=== PATIENT | female | born 1970 | race Two or more races ===

== ENCOUNTER 2016-11-08 22:51 | Emergency (ER) | payer MEDICAID ==
[~2016-11-08] VITALS: Ht 154.9 cm; Wt 59.0 kg
[2016-11-08 23:00] VITALS: BP 106/74
[2016-11-08 23:46] LABS: Basophils # (auto) 0 uL; Basophils % (auto) 0.3 % (0.0-2.0); Eosinophils # (auto) 0.1 uL; Eosinophils % (auto) 1.1 % (0.0-7.0); Hematocrit 33.4 % (36.0-46.0); Hemoglobin 11.4 g/dL (12.2-16.2); Lymphocytes # (auto) 1.6 uL; Lymphocytes % (auto) 28.1 % (10.0-50.0); Mean Corpuscular Hemoglobin 28.3 pg (28.0-32.0); Mean Corpuscular Hgb Conc. 34.3 g/dL (32.0-36.0); Mean Corpuscular Volume 82.5 fL (80.0-100.0); Mean Platelet Volume 8.7 fL (7.4-10.4); Monocytes # (auto) 0.3 uL; Monocytes % (auto) 5.9 % (0.0-12.0); Neutrophils # (auto) 3.7 uL; Neutrophils % (auto) 64.6 % (37.0-80.0); Platelet Count (auto) 178 10^3/uL (140-450); Red Cell Distribution Width 13.9 % (11.6-16.0); White Blood Cell 5.7 10^3/uL (4.4-10.8)
[2016-11-09 00:08] LABS: Albumin 3.2 g/dL (3.4-5.0); BUN/Creatinine Ratio 20.4; Bilirubin, Total 0.3 mg/dL (0.2-1.0); Calcium 8.4 mg/dL (8.5-10.1); Potassium 3.6 mmol/L (3.5-5.1); Total Protein 8.2 g/dL (6.4-8.2)
[2016-11-09] MEDS ORDERED: cefTRIAXone SOD 1,000 MG VL IM ONE (01:00)
[2016-11-09] MEDS ORDERED: LIDOCAINE 1% HCL (LOCAL ANESTH.) INJ 20ML MDV IJ ONE (01:00)
== END 2016-11-09 01:34 | disposition home or self-care (01) ==
LOC: ER 22:51
DX: L02.413 Cutaneous abscess of right upper limb (principal); L03.113 Cellulitis of right upper limb; F15.90 Other stimulant use, unspecified, uncomplicated; F17.210 Nicotine dependence, cigarettes, uncomplicated
CPT/HCPCS: 36415; 80053; 85025; 87040; 96372; 96374; 99284; J0696; J2001

== ENCOUNTER 2017-01-07 07:35 | Inpatient (IN) | payer SELFPAY ==
[~2017-01-07] VITALS: Ht 154.9 cm; Wt 65.9 kg
[2017-01-07] MEDS ORDERED: SODIUM CHLORIDE 0.9% 1,000 ML IV ONE (07:47)
[2017-01-07] MEDS ORDERED: CLINDAMYCIN 600MG IV 50 ML IV ONE (08:00)
[2017-01-07] MEDS ORDERED: KETOROLAC TROMETH 30 MG/ML 1ML VIAL IV ONE (09:00)
[2017-01-07 09:07] LABS: Basophils # (auto) 0 uL; Basophils % (auto) 0.3 % (0.0-2.0); CONDITION Y; Eosinophils # (auto) 0 uL; Eosinophils % (auto) 0.5 % (0.0-7.0); Hemoglobin 11.4 g/dL (12.2-16.2); Lymphocytes % (auto) 13.9 % (10.0-50.0); Mean Corpuscular Hgb Conc. 33.7 g/dL (32.0-36.0); Mean Corpuscular Volume 83.2 fL (80.0-100.0); Monocytes # (auto) 0.3 uL; Monocytes % (auto) 4.7 % (0.0-12.0); Neutrophils # (auto) 5.9 uL; Neutrophils % (auto) 80.6 % (37.0-80.0); Platelet Count (auto) 169 10^3/uL (140-450); Red Cell Distribution Width 15.4 % (11.6-16.0); White Blood Cell 7.3 10^3/uL (4.4-10.8)
[2017-01-07 09:26] LABS: Albumin 2.9 g/dL (3.4-5.0); BUN/Creatinine Ratio 13.3; Bilirubin, Total 0.3 mg/dL (0.2-1.0); Potassium 3.4 mmol/L (3.5-5.1); Total Protein 7.8 g/dL (6.4-8.2)
[2017-01-07] MEDS ORDERED: PROMETHAZINE HCL 25 MG/ML 1ML IV PRN (09:45)
[2017-01-07] MEDS ORDERED: LORazepam 0.5 MG TAB PO PRN (09:45)
[2017-01-07] MEDS ORDERED: cefTRIAXone 1GM/50ML D5W 50 ML IV ONE (09:45)
[2017-01-07] MEDS ORDERED: LACTULOSE 20Gm/30ML SOLN PO PRN (09:45)
[2017-01-07] MEDS ORDERED: MORPHINE SULF INJ 2 MG/ML SYRINGE 1ML IV PRN (09:45)
[2017-01-07] MEDS ORDERED: NITROGLYCERIN 0.4 MG SL TAB SL PRN (09:45)
[2017-01-07] MEDS ORDERED: ACETAMINOPHEN 500 MG TAB PO PRN (09:45)
[2017-01-07] MEDS: SODIUM CHLORIDE 0.9% 1,000 ML IV SCH ×2 (09:59→19:35)
[2017-01-07] MEDS ORDERED: POTASSIUM CHL 20 Meq TABLET PO ONE (11:30)
[2017-01-07] MEDS: HYDROcodone-ACET 5/325MG TAB PO PRN (16:09)
[2017-01-07] MEDS: CLINDAMYCIN 600MG IV 50 ML IV SCH ×2 (18:19→21:19)
[2017-01-07] MEDS: MORPHINE SULFATE 4 MG/ML SYRG IV PRN ×2 (18:20→22:45)
[2017-01-07] MEDS ORDERED: METH10T PO (19:02)
[2017-01-07 19:25] LABS: Urine Bilirubin Negative (Negative); Urine Blood TRACE /uL (Negative); Urine Color Yellow (Yellow); Urine Glucose Normal (Normal); Urine Ketone Negative (Negative); Urine Mucus FEW (None Seen); Urine Nitrite Negative (Negative); Urine RBC 1 /hpf (0 - 4); Urine Squamous Epithelial Cell FEW /hpf (<5); Urine Urobilinogen Normal (Negative); Urine pH 5.5 (5.0-8.0)
[2017-01-07 21:40] VITALS: BP 129/88
[2017-01-08] MEDS: TEMAZEPAM 15 MG CAP PO PRN (02:05)
[2017-01-08] MEDS: MORPHINE SULFATE 4 MG/ML SYRG IV PRN ×3 (02:40→13:01)
[2017-01-08 04:51] VITALS: BP 121/79
[2017-01-08] MEDS: SODIUM CHLORIDE 0.9% 1,000 ML IV SCH ×2 (05:35→15:35)
[2017-01-08] MEDS: CLINDAMYCIN 600MG IV 50 ML IV SCH ×3 (05:53→22:41)
[2017-01-08 06:21] LABS: Albumin 2.5 g/dL (3.4-5.0); Calcium 7.6 mg/dL (8.5-10.1); Potassium 3.7 mmol/L (3.5-5.1)
[2017-01-08 06:25] LABS: BUN/Creatinine Ratio 11.8
[2017-01-08 06:29] LABS: Bilirubin, Total 0.3 mg/dL (0.2-1.0); Total Protein 6.5 g/dL (6.4-8.2)
[2017-01-08 07:30] VITALS: BP 124/79
[2017-01-08 09:00] VITALS: BP 124/79
[2017-01-08] MEDS: cefTRIAXone 1GM/50ML D5W 50 ML IV SCH (11:23)
[2017-01-08 13:00] VITALS: BP 115/60
[2017-01-08] MEDS: METHADONE HCL 10 MG TAB PO SCH (14:22)
[2017-01-08 17:23] VITALS: BP 108/64
[2017-01-08] MEDS: HYDROmorphone HCL 2 MG/ML VL IV PRN ×2 (18:11→22:41)
[2017-01-08 22:00] VITALS: BP 135/78
[2017-01-09 05:00] VITALS: BP 104/66
[2017-01-09] MEDS: SODIUM CHLORIDE 0.9% 1,000 ML IV SCH ×3 (05:50→21:35)
[2017-01-09 06:15] LABS: BUN/Creatinine Ratio 10.8; Calcium 7.6 mg/dL (8.5-10.1); Magnesium 1.9 mg/dL (1.6-2.6); Phosphorus 3.2 mg/dL (2.5-4.90)
[2017-01-09] MEDS: HYDROmorphone HCL 2 MG/ML VL IV PRN ×4 (06:17→20:24)
[2017-01-09] MEDS: CLINDAMYCIN 600MG IV 50 ML IV SCH ×2 (06:18→15:27)
[2017-01-09 06:53] LABS: Basophils # (auto) 0 uL; Basophils % (auto) 0.2 % (0.0-2.0); CONDITION Y; Eosinophils # (auto) 0.1 uL; Eosinophils % (auto) 1.4 % (0.0-7.0); Hematocrit 26.6 % (36.0-46.0); Hemoglobin 8.9 g/dL (12.2-16.2); Lymphocytes # (auto) 1.3 uL; Lymphocytes % (auto) 24.9 % (10.0-50.0); Mean Corpuscular Hemoglobin 27.8 pg (28.0-32.0); Mean Corpuscular Hgb Conc. 33.4 g/dL (32.0-36.0); Mean Platelet Volume 10.4 fL (7.4-10.4); Monocytes # (auto) 0.4 uL; Monocytes % (auto) 7.5 % (0.0-12.0); Neutrophils # (auto) 3.4 uL; Platelet Count (auto) 137 10^3/uL (140-450); Red Cell Distribution Width 15.6 % (11.6-16.0); White Blood Cell 5.2 10^3/uL (4.4-10.8)
[2017-01-09 09:00] VITALS: BP 105/63
[2017-01-09] MEDS: METHADONE HCL 10 MG TAB PO SCH (09:47)
[2017-01-09] MEDS: cefTRIAXone 1GM/50ML D5W 50 ML IV SCH (09:47)
[2017-01-09 13:00] VITALS: BP 114/71
[2017-01-09] MEDS ORDERED: VANCOMYCIN 1,250 MG in D5W 5% 250 ML IV ONE (16:45)
[2017-01-09] MEDS ORDERED: VANCOMYCIN PER PHARMACY 0 MG IV SCH (16:45)
[2017-01-09 17:00] VITALS: BP 151/83
[2017-01-09] MEDS: NICOTINE 21MG/24 HR TOPICAL PATCH TD SCH (17:43)
[2017-01-09] MEDS ORDERED: POTASSIUM CHL 20 Meq TABLET PO ONE (21:00)
[2017-01-09 22:17] VITALS: BP 127/79
[2017-01-10] MEDS: SODIUM CHLORIDE 0.9% 1,000 ML IV SCH (02:53)
[2017-01-10] MEDS: HYDROmorphone HCL 2 MG/ML VL IV PRN ×3 (02:58→20:32)
[2017-01-10 05:05] VITALS: BP 118/72
[2017-01-10 07:10] LABS: Basophils # (auto) 0 uL; Basophils % (auto) 0.3 % (0.0-2.0); CONDITION Y; Eosinophils # (auto) 0.1 uL; Hematocrit 27.8 % (36.0-46.0); Hemoglobin 9.5 g/dL (12.2-16.2); Lymphocytes # (auto) 1.2 uL; Lymphocytes % (auto) 23.3 % (10.0-50.0); Mean Corpuscular Hemoglobin 27.9 pg (28.0-32.0); Mean Corpuscular Volume 82.2 fL (80.0-100.0); Mean Platelet Volume 9.2 fL (7.4-10.4); Monocytes # (auto) 0.4 uL; Monocytes % (auto) 7.9 % (0.0-12.0); Neutrophils # (auto) 3.5 uL; Neutrophils % (auto) 67.5 % (37.0-80.0); Platelet Count (auto) 171 10^3/uL (140-450); White Blood Cell 5.2 10^3/uL (4.4-10.8)
[2017-01-10 07:34] LABS: BUN/Creatinine Ratio 10.5; Calcium 7.9 mg/dL (8.5-10.1); Magnesium 1.9 mg/dL (1.6-2.6); Phosphorus 3.2 mg/dL (2.5-4.90); Potassium 3.9 mmol/L (3.5-5.1)
[2017-01-10 09:00] VITALS: BP 118/68
[2017-01-10] MEDS: NICOTINE 21MG/24 HR TOPICAL PATCH TD SCH (10:00)
[2017-01-10] MEDS: cefTRIAXone 1GM/50ML D5W 50 ML IV SCH (10:17)
[2017-01-10] MEDS: VANCOMYCIN 1GM/250ML D5W 250 ML IV SCH ×2 (10:17→21:35)
[2017-01-10] MEDS: METHADONE HCL 10 MG TAB PO SCH (10:18)
[2017-01-10 13:00] VITALS: BP 120/65
[2017-01-10 17:00] VITALS: BP 127/72
[2017-01-10 21:39] VITALS: BP 119/70
[2017-01-11] MEDS: HYDROmorphone HCL 2 MG/ML VL IV PRN ×5 (02:38→22:00)
[2017-01-11 05:14] VITALS: BP 107/67
[2017-01-11 08:30] VITALS: BP 107/64
[2017-01-11] MEDS: cefTRIAXone 1GM/50ML D5W 50 ML IV SCH (08:32)
[2017-01-11] MEDS: VANCOMYCIN 1GM/250ML D5W 250 ML IV SCH ×2 (09:52→20:50)
[2017-01-11] MEDS: METHADONE HCL 10 MG TAB PO SCH (09:53)
[2017-01-11] MEDS: NICOTINE 21MG/24 HR TOPICAL PATCH TD SCH (09:53)
[2017-01-11 12:30] VITALS: BP 112/65
[2017-01-11] MEDS: HYDROcodone-ACET 5/325MG TAB PO PRN (16:03)
[2017-01-11 17:00] VITALS: BP 116/80
[2017-01-11] MEDS ORDERED: NICOTINE 21MG/24 HR TOPICAL PATCH TD ONE (17:00)
[2017-01-11 21:45] VITALS: BP 146/75
[2017-01-12] MEDS: HYDROmorphone HCL 2 MG/ML VL IV PRN ×4 (02:33→23:20)
[2017-01-12 05:15] VITALS: BP 112/60
[2017-01-12] MEDS ORDERED: ceFAZolin 1GM/50ML D5W 50 ML IV ONE (08:35)
[2017-01-12] MEDS ORDERED: NEOMYCIN-BACITRACIN-POLYM 15GM TOP OINT TOP ONE (08:36)
[2017-01-12] MEDS ORDERED: BUPIVACAINE 0.75% INJ 10ML MPV SDV IJ ONE (08:36)
[2017-01-12] MEDS ORDERED: ceFAZolin 1GM VL ONE (08:36)
[2017-01-12 08:52] LABS: INR 0.91 (0.9-1.15); Partial Thromboplastin Time 26.9 sec (22.64-33.71); Prothrombin Time 9.9 sec (9.37-12.3)
[2017-01-12 09:00] VITALS: BP 114/76
[2017-01-12] MEDS: cefTRIAXone 1GM/50ML D5W 50 ML IV SCH (09:00)
[2017-01-12] MEDS ORDERED: fentaNYL CITRATE 100 MCG/2 ML VL ONE (09:37)
[2017-01-12] MEDS ORDERED: MEPERIDINE HCL (50 MG/ML) 1 ML VIAL ONE (09:38)
[2017-01-12] MEDS ORDERED: MIDAZOLAM HCL 1MG/1ML-2 ML VIAL ONE (09:38)
[2017-01-12] MEDS: VANCOMYCIN 1GM/250ML D5W 250 ML IV SCH (10:00)
[2017-01-12] MEDS: METHADONE HCL 10 MG TAB PO SCH (10:00)
[2017-01-12] MEDS: NICOTINE 21MG/24 HR TOPICAL PATCH TD SCH (10:00)
[2017-01-12] MEDS ORDERED: DEXAMETHASONE SOD PHOS 10MG/1ML VIAL INJ ONE (10:10)
[2017-01-12] MEDS ORDERED: PROPOFOL 10 MG/ML 20 ML IV ONE (10:10)
[2017-01-12 12:39] VITALS: BP 119/73
[2017-01-12] MEDS: CLINDAMYCIN 600MG IV 50 ML IV SCH ×2 (14:24→21:56)
[2017-01-12 16:11] VITALS: BP 120/68
[2017-01-12] MEDS ORDERED: METHADONE HCL 10 MG TAB PO ONE (17:00)
[2017-01-12 22:00] VITALS: BP 145/62
[2017-01-13] MEDS: TEMAZEPAM 15 MG CAP PO PRN (00:22)
[2017-01-13] MEDS: HYDROcodone-ACET 5/325MG TAB PO PRN (00:22)
[2017-01-13] MEDS: CLINDAMYCIN 600MG IV 50 ML IV SCH (05:10)
[2017-01-13 05:30] VITALS: BP 105/51
[2017-01-13] MEDS: HYDROmorphone HCL 2 MG/ML VL IV PRN ×2 (06:55→11:32)
[2017-01-13 09:00] VITALS: BP 118/70
[2017-01-13] MEDS: cefTRIAXone 1GM/50ML D5W 50 ML IV SCH (09:25)
[2017-01-13] MEDS ORDERED: CLIN1CAP4 PO (09:58)
[2017-01-13] MEDS: NICOTINE 21MG/24 HR TOPICAL PATCH TD SCH (10:10)
[2017-01-13] MEDS: METHADONE HCL 10 MG TAB PO SCH (10:11)
[2017-01-13 13:00] VITALS: BP 126/69
[2017-01-13 13:02] VITALS: BP 126/69
== END 2017-01-13 17:40 | disposition home or self-care (01) | DRG 571 ==
LOC: ER 07:35 → TELE 07:36 → TELE-E-ADS 12:42 → TELE-CENTR 16:57 → CENTRAL 01-10 03:11
PROVIDERS: ADMIT Internal Medicine; ATTEND Internal Medicine
PROC: 0JBR0ZZ Excision of Left Foot Subcutaneous Tissue and Fascia, Open Approach (ICD-10-PCS; principal; 2017-01-12 09:36)
DX: L03.116 Cellulitis of left lower limb (principal); F11.20 Opioid dependence, uncomplicated; L02.612 Cutaneous abscess of left foot; E44.0 Moderate protein-calorie malnutrition; B19.20 Unspecified viral hepatitis C without hepatic coma; F41.9 Anxiety disorder, unspecified; F32.9 Major depressive disorder, single episode, unspecified; F17.210 Nicotine dependence, cigarettes, uncomplicated; E87.6 Hypokalemia; D64.9 Anemia, unspecified; Z68.27 Body mass index [BMI] 27.0-27.9, adult; Z98.51 Tubal ligation status
CPT/HCPCS: 36415; 73630; 73700; 80048; 80053; 80202; 80307; 81001; 82565; 83605; 83735; 84100; 84702; 85025; 85610; 85652; 85730; 87040; 87070; 87075; 87081; 87205; 94761; 96361; 96365; 96366; 96367; 96375; J0690; J0696; J1100; J1885; J2250; J2704; J3490; J7060

== ENCOUNTER 2017-02-08 17:15 | Emergency (ER) | payer SELFPAY ==
[~2017-02-08] VITALS: Ht 154.9 cm; Wt 59.0 kg
[~2017-02-08 17:15] MED LIST: CLIN1CAP4 PO; METH10T PO
[2017-02-08 17:39] VITALS: BP 120/83
== END 2017-02-08 21:00 | disposition left against medical advice (07) ==
LOC: ER 17:25
DX: R22.0 Localized swelling, mass and lump, head (principal); Z53.21 Procedure and treatment not carried out due to patient leaving prior to being seen by health care provider

== ENCOUNTER 2017-02-23 20:46 | Emergency (ER) | payer MEDICAID ==
[~2017-02-23] VITALS: Ht 154.9 cm; Wt 59.0 kg
[2017-02-23 21:12] VITALS: BP 110/72
[2017-02-23 22:23] LABS: Basophils # (auto) 0 uL; Basophils % (auto) 0.1 % (0.0-2.0); Eosinophils # (auto) 0.1 uL; Eosinophils % (auto) 0.8 % (0.0-7.0); Hematocrit 31.7 % (36.0-46.0); Hemoglobin 10.8 g/dL (12.2-16.2); Lymphocytes # (auto) 0.9 uL; Lymphocytes % (auto) 9.3 % (10.0-50.0); Mean Corpuscular Hemoglobin 27.6 pg (28.0-32.0); Mean Corpuscular Volume 81.3 fL (80.0-100.0); Mean Platelet Volume 8.8 fL (6.9-10.8); Monocytes # (auto) 0.5 uL; Monocytes % (auto) 4.8 % (0.0-12.0); Neutrophils # (auto) 8.3 uL; Platelet Count (auto) 204 10^3/uL (140-450); Red Cell Distribution Width 14.7 % (11.8-14.3); White Blood Cell 9.7 10^3/uL (4.4-10.8)
[2017-02-23 22:28] LABS: Urine Bilirubin Negative (Negative); Urine Blood 1+ /uL (Negative); Urine Color Yellow (Yellow); Urine Glucose Normal (Normal); Urine Ketone Negative (Negative); Urine Mucus MODERATE (None Seen); Urine Nitrite Negative (Negative); Urine RBC 5 /hpf (0 - 4); Urine Squamous Epithelial Cell MOD /hpf (<5); Urine Urobilinogen Normal (Negative); Urine WBC Clumps PRESENT /hpf (None Seen)
[2017-02-23 22:37] LABS: Albumin 2.8 g/dL (3.4-5.0); BUN/Creatinine Ratio 12.7; Bilirubin, Total 0.3 mg/dL (0.2-1.0); Calcium 8.6 mg/dL (8.5-10.1); Total Protein 7.9 g/dL (6.4-8.2)
== END 2017-02-24 01:47 | disposition left against medical advice (07) ==
LOC: ER 20:56
DX: L02.211 Cutaneous abscess of abdominal wall (principal); Z53.21 Procedure and treatment not carried out due to patient leaving prior to being seen by health care provider
CPT/HCPCS: 36415; 80053; 80307; 81001; 83605; 84702; 85025; 87040

== ENCOUNTER 2017-03-05 11:18 | Emergency (ER) | payer MEDICAID ==
[~2017-03-05] VITALS: Ht 154.9 cm; Wt 59.0 kg
[2017-03-05 11:36] VITALS: BP 149/92
[2017-03-05] MEDS ORDERED: LIDOCAINE 1% HCL (LOCAL ANESTH.) INJ 20ML MDV IN ONE (14:00)
[2017-03-05] MEDS ORDERED: cefTRIAXone SOD 1,000 MG VL IM ONE (14:15)
[2017-03-05] MEDS ORDERED: KETOROLAC TROMETH 60MG/2ML VIAL IM ONE (14:15)
== END 2017-03-05 14:48 | disposition home or self-care (01) ==
LOC: ER 11:18
DX: L02.211 Cutaneous abscess of abdominal wall (principal); Z79.899 Other long term (current) drug therapy; Z98.51 Tubal ligation status; Z59.0 Homelessness; F19.90 Other psychoactive substance use, unspecified, uncomplicated
CPT/HCPCS: 10060; 96372; 99284; J0696; J1885; J2001

== ENCOUNTER 2017-07-09 17:20 | Emergency (ER) | payer MEDICAID, OTHER ==
[~2017-07-09] VITALS: Ht 154.9 cm; Wt 57.2 kg
[2017-07-09 17:41] VITALS: BP 134/86
[2017-07-09] MEDS ORDERED: cefTRIAXone SOD 1,000 MG VL IM ONE (17:45)
== END 2017-07-09 18:22 | disposition home or self-care (01) ==
LOC: ER 17:25
DX: L03.311 Cellulitis of abdominal wall (principal); F19.90 Other psychoactive substance use, unspecified, uncomplicated; F17.210 Nicotine dependence, cigarettes, uncomplicated; Z59.0 Homelessness
CPT/HCPCS: 96372; 99283; J0696

== ENCOUNTER 2017-08-07 14:31 | Inpatient (IN) | payer OTHER ==
[~2017-08-07] VITALS: Ht 154.9 cm; Wt 57.1 kg
[2017-08-07 15:38] LABS: Basophils # (auto) 0 uL; Basophils % (auto) 0.2 % (0.0-2.0); Eosinophils # (auto) 0.2 uL; Eosinophils % (auto) 2.2 % (0.0-7.0); Hematocrit 34.2 % (36.0-46.0); Hemoglobin 11.2 g/dL (12.2-16.2); Lymphocytes # (auto) 0.9 uL; Lymphocytes % (auto) 12.6 % (10.0-50.0); Mean Corpuscular Hemoglobin 25.6 pg (28.0-32.0); Mean Corpuscular Hgb Conc. 32.8 g/dL (32.0-36.0); Monocytes # (auto) 0.4 uL; Monocytes % (auto) 5.9 % (0.0-12.0); Neutrophils # (auto) 5.8 uL; Neutrophils % (auto) 79.1 % (37.0-80.0); Platelet Count (auto) 256 10^3/uL (140-450); Red Blood Cells 4.38 10^6/uL (4.0-5.20); Red Cell Distribution Width 15.8 % (11.8-14.3); White Blood Cell 7.3 10^3/uL (4.4-10.8)
[2017-08-07 15:55] LABS: Albumin 2.8 g/dL (3.4-5.0); BUN/Creatinine Ratio 29.8; Calcium 8.4 mg/dL (8.5-10.1); Potassium 3.2 mmol/L (3.5-5.1)
[2017-08-07 15:57] LABS: Bilirubin, Total 0.2 mg/dL (0.2-1.0)
[2017-08-07] MEDS ORDERED: SODIUM CHLORIDE 0.9% 1,000 ML IV ONE (21:45)
[2017-08-07] MEDS ORDERED: VANCOMYCIN 1GM/250ML 250 ML IV ONE (22:30)
[2017-08-07] MEDS ORDERED: HYDROcodone-ACET 10/325MG TAB PO ONE (22:30)
[2017-08-07] MEDS ORDERED: cefTRIAXone 1GM/10ml IVPUSH 10 ML IV ONE (22:30)
[2017-08-08] MEDS ORDERED: HYDROcodone-ACET 5/325MG TAB PO PRN (03:00)
[2017-08-08] MEDS ORDERED: ONDANSETRON HCL 4 MG/2 ML VIAL IV PRN (03:00)
[2017-08-08] MEDS ORDERED: ACETAMINOPHEN 500 MG TAB PO PRN (03:00)
[2017-08-08] MEDS ORDERED: VANCOMYCIN PER PHARMACY 0 MG IV SCH (03:00)
[2017-08-08 05:02] LABS: Urine Bacteria MOD /hpf (None Seen); Urine Blood 2+ /uL (Negative); Urine Mucus FEW (None Seen); Urine Specific Gravity 1.006 (1.001-1.035); Urine WBC 5 /hpf (0 - 5)
[2017-08-08 05:14] LABS: Alcohol, Urine < 3.0 mg/dL (0-5); Amphetamine Screen, Urine POSITIVE (NEGATIVE); Barbiturate Scree,Urine NEGATIVE (NEGATIVE); Benzodiazephine Screen, Urine NEGATIVE (NEGATIVE); Cannabinoid Screen, Urine NEGATIVE (NEGATIVE); Cocaine Screen, Urine NEGATIVE (NEGATIVE); Opiate Scree,Urine POSITIVE (NEGATIVE); Phencyclidine Screen, Urine NEGATIVE (NEGATIVE)
[2017-08-08 08:01] LABS: Potassium 3.5 mmol/L (3.5-5.1)
[2017-08-08 08:10] LABS: Albumin 2.2 g/dL (3.4-5.0); BUN/Creatinine Ratio 20.5; Calcium 7.8 mg/dL (8.5-10.1)
[2017-08-08 08:19] LABS: Bilirubin, Total 0.2 mg/dL (0.2-1.0); Total Protein 6.6 g/dL (6.4-8.2)
[2017-08-08] MEDS: VANCOMYCIN 750 MG in D5W 5% 250 ML IV SCH ×2 (09:28→20:52)
[2017-08-08 10:07] LABS: Basophils # (auto) 0 uL; Eosinophils # (auto) 0.1 uL; Hemoglobin 10.2 g/dL (12.2-16.2); Monocytes # (auto) 0.3 uL
[2017-08-08 10:09] LABS: Basophils % (auto) 0.3 % (0.0-2.0); Eosinophils % (auto) 1.7 % (0.0-7.0); Hematocrit 30.3 % (36.0-46.0); Lymphocytes # (auto) 0.7 uL; Lymphocytes % (auto) 11.4 % (10.0-50.0); Mean Corpuscular Hemoglobin 26.2 pg (28.0-32.0); Mean Corpuscular Hgb Conc. 33.6 g/dL (32.0-36.0); Mean Corpuscular Volume 77.9 fL (80.0-100.0); Monocytes % (auto) 4.7 % (0.0-12.0); Neutrophils % (auto) 81.9 % (37.0-80.0); Platelet Count (auto) 245 10^3/uL (140-450); Red Blood Cells 3.88 10^6/uL (4.0-5.20); Red Cell Distribution Width 15.8 % (11.8-14.3); White Blood Cell 6.1 10^3/uL (4.4-10.8)
[2017-08-08 10:26] LABS: BUN/Creatinine Ratio 16.7; Calcium 8.5 mg/dL (8.5-10.1); Potassium 3.6 mmol/L (3.5-5.1)
[2017-08-08] MEDS: MORPHINE SULFATE 4 MG/ML SYR/VIAL IV PRN ×3 (11:09→20:52)
[2017-08-08 14:54] VITALS: BP 121/71
[2017-08-08] MEDS ORDERED: cefTRIAXone 1GM/10ml IVPUSH 10 ML IV ONE (15:15)
[2017-08-08] MEDS ORDERED: INFLUENZA QUAD 2017-2018 0.5 ML SYRG IM ONE (15:45)
[2017-08-08 16:58] VITALS: BP 121/70
[2017-08-08 20:00] VITALS: BP 127/80
[2017-08-08 21:24] VITALS: BP 127/80
[2017-08-09] MEDS: MORPHINE SULFATE 4 MG/ML SYR/VIAL IV PRN ×4 (02:57→19:50)
[2017-08-09 05:43] VITALS: BP 98/51
[2017-08-09 08:31] LABS: Basophils # (auto) 0 uL; Eosinophils # (auto) 0.2 uL; Hemoglobin 10.4 g/dL (12.2-16.2); Monocytes # (auto) 0.5 uL; Neutrophils # (auto) 3.2 uL; Nucleated Red Blood Cells % 0.1 %; Red Blood Cells 4.05 10^6/uL (4.0-5.20)
[2017-08-09 08:33] LABS: Basophils % (auto) 0.5 % (0.0-2.0); Eosinophils % (auto) 3.3 % (0.0-7.0); Hematocrit 31.4 % (36.0-46.0); Mean Corpuscular Hemoglobin 25.7 pg (28.0-32.0); Mean Corpuscular Hgb Conc. 33.2 g/dL (32.0-36.0); Mean Corpuscular Volume 77.5 fL (80.0-100.0); Monocytes % (auto) 9.9 % (0.0-12.0); Neutrophils % (auto) 66.3 % (37.0-80.0); Platelet Count (auto) 271 10^3/uL (140-450); Red Cell Distribution Width 16.1 % (11.8-14.3); White Blood Cell 4.9 10^3/uL (4.4-10.8)
[2017-08-09] MEDS: cefTRIAXone 1GM/10ml IVPUSH 10 ML IV SCH (08:45)
[2017-08-09] MEDS: VANCOMYCIN 750 MG in D5W 5% 250 ML IV SCH ×2 (08:45→20:31)
[2017-08-09 08:49] LABS: Albumin 2.3 g/dL (3.4-5.0); BUN/Creatinine Ratio 20.9; Bilirubin, Total 0.2 mg/dL (0.2-1.0); Calcium 8.3 mg/dL (8.5-10.1); Potassium 3.9 mmol/L (3.5-5.1); Total Protein 7.1 g/dL (6.4-8.2)
[2017-08-09 09:16] VITALS: BP 117/67
[2017-08-09 13:24] VITALS: BP 117/71
[2017-08-09 20:00] VITALS: BP 133/70
[2017-08-09] MEDS ORDERED: VANCOMYCIN 750 MG in D5W 5% 250 ML IV SCH (21:00)
[2017-08-09 22:27] VITALS: BP 125/72
[2017-08-10] MEDS: MORPHINE SULFATE 4 MG/ML SYR/VIAL IV PRN ×5 (00:30→17:57)
[2017-08-10] MEDS: VANCOMYCIN 750 MG in D5W 5% 250 ML IV SCH ×2 (05:09→13:43)
[2017-08-10 05:24] VITALS: BP 124/68
[2017-08-10 08:34] VITALS: BP 135/84
[2017-08-10] MEDS: cefTRIAXone 1GM/10ml IVPUSH 10 ML IV SCH (09:26)
[2017-08-10 12:23] VITALS: BP 131/82
[2017-08-10 16:38] VITALS: BP 131/79
== END 2017-08-10 19:47 | disposition left against medical advice (07) | DRG 383 ==
LOC: ER 14:31 → OVERFLOW 14:32 → EAST 08-08 14:08
PROVIDERS: ADMIT Nurse Practitioner Family; ATTEND Internal Medicine
DX: L03.115 Cellulitis of right lower limb (principal); E43 Unspecified severe protein-calorie malnutrition; L02.415 Cutaneous abscess of right lower limb; F11.10 Opioid abuse, uncomplicated; B19.20 Unspecified viral hepatitis C without hepatic coma; F41.9 Anxiety disorder, unspecified; Z53.21 Procedure and treatment not carried out due to patient leaving prior to being seen by health care provider; F17.210 Nicotine dependence, cigarettes, uncomplicated; Z59.0 Homelessness; Z23 Encounter for immunization
CPT/HCPCS: 36415; 73700; 80048; 80053; 80202; 80307; 81001; 83605; 85025; 87040; 87070; 87077; 87086; 87186; 96361; 96365; 96366; 96375; J2405; J7060

== ENCOUNTER 2017-11-02 09:16 | Inpatient (IN) | payer MEDICAID, OTHER ==
[~2017-11-02] VITALS: Ht 154.9 cm; Wt 57.2 kg
[~2017-11-02 09:16] MED LIST changes: -CLIN1CAP4 PO
[2017-11-02] MEDS ORDERED: SODIUM CHLORIDE 0.9% 2,000 ML IV ONE (09:52)
[2017-11-02] MEDS ORDERED: cefTRIAXone 1GM/10ml IVPUSH 10 ML IV ONE (10:00)
[2017-11-02] MEDS ORDERED: VANCOMYCIN 1GM/250ML 250 ML IV ONE (10:00)
[2017-11-02 10:30] LABS: Basophils # (auto) 0 uL; Basophils % (auto) 0.6 % (0.0-2.0); Eosinophils # (auto) 0.1 uL; Eosinophils % (auto) 2.2 % (0.0-7.0); Hematocrit 31.8 % (36.0-46.0); Hemoglobin 10.3 g/dL (12.2-16.2); Lymphocytes # (auto) 1.2 uL; Lymphocytes % (auto) 22.7 % (10.0-50.0); Mean Corpuscular Hemoglobin 23.6 pg (28.0-32.0); Mean Corpuscular Hgb Conc. 32.2 g/dL (32.0-36.0); Mean Corpuscular Volume 73.3 fL (80.0-100.0); Monocytes # (auto) 0.4 uL; Monocytes % (auto) 8.8 % (0.0-12.0); Neutrophils # (auto) 3.3 uL; Neutrophils % (auto) 65.7 % (37.0-80.0); Platelet Count (auto) 362 10^3/uL (140-450); Red Blood Cells 4.34 10^6/uL (4.0-5.20); Red Cell Distribution Width 16.5 % (11.8-14.3); White Blood Cell 5.1 10^3/uL (4.4-10.8)
[2017-11-02 10:46] LABS: INR 0.96 (0.9-1.15); Partial Thromboplastin Time 26.1 sec (23.78-33.04); Prothrombin Time 10.3 sec (9.27-12.13)
[2017-11-02 10:56] LABS: Albumin 2.4 g/dL (3.4-5.0); BUN/Creatinine Ratio 14.9; Bilirubin, Total 0.2 mg/dL (0.2-1.0); Calcium 8.6 mg/dL (8.5-10.1); Potassium 3.4 mmol/L (3.5-5.1); Total Protein 8.2 g/dL (6.4-8.2)
[2017-11-02] MEDS ORDERED: SODIUM CHLORIDE 0.9% 1,000 ML IV ONE (11:46)
[2017-11-02 13:03] LABS: Beta HCG, Quantitative < 1 mlU/mL (1-3); Thyroid Stimulating Hormone 1.56 uIU/mL (0.358-3.74)
[2017-11-02] MEDS ORDERED: IOHEXOL 300 MG/ML 100ML BOTTLE IJ ONE (13:11)
[2017-11-02 13:52] LABS: Urine WBC None Seen /hpf (0 - 5)
[2017-11-02 14:19] LABS: Urine Bacteria FEW /hpf (None Seen); Urine Blood Negative /uL (Negative); Urine Hyaline Cast FEW /lpf (0 - 2); Urine Mucus FEW (None Seen); Urine Specific Gravity 1.018 (1.001-1.035)
[2017-11-02 15:08] LABS: Alcohol, Urine < 3.0 mg/dL (0-5); Amphetamine Screen, Urine POSITIVE (NEGATIVE); Barbiturate Scree,Urine NEGATIVE (NEGATIVE); Benzodiazephine Screen, Urine NEGATIVE (NEGATIVE); Cannabinoid Screen, Urine NEGATIVE (NEGATIVE); Cocaine Screen, Urine NEGATIVE (NEGATIVE); Opiate Scree,Urine POSITIVE (NEGATIVE); Phencyclidine Screen, Urine NEGATIVE (NEGATIVE)
[2017-11-02] MEDS ORDERED: LORazepam 0.5 MG TAB PO PRN (15:15)
[2017-11-02] MEDS ORDERED: MORPHINE SULFATE 4 MG/ML SYR/VIAL IV PRN ×2 (15:15)
[2017-11-02] MEDS ORDERED: KETOROLAC TROMETH 30 MG/ML 1ML VIAL IV ONE (15:15)
[2017-11-02] MEDS ORDERED: POTASSIUM CHL 20 Meq TABLET PO ONE (15:15)
[2017-11-02] MEDS ORDERED: PIPERACILLIN-TAZOB 3.375GM 100 ML IV ONE (15:15)
[2017-11-02] MEDS ORDERED: PROMETHAZINE HCL 25 MG/ML 1ML IV PRN (15:15)
[2017-11-02] MEDS ORDERED: METOCLOPRAMIDE HCL 5MG/ml INJ 2ml VIAL IV ONE (15:15)
[2017-11-02] MEDS ORDERED: LACTULOSE 20Gm/30ML SOLN PO PRN (15:15)
[2017-11-02] MEDS ORDERED: NITROGLYCERIN 0.4 MG SL TAB SL PRN (15:15)
[2017-11-02] MEDS ORDERED: VANCOMYCIN PER PHARMACY 0 MG IV SCH (15:15)
[2017-11-02] MEDS ORDERED: ACETAMINOPHEN 500 MG TAB PO PRN (15:15)
[2017-11-02] MEDS ORDERED: TEMAZEPAM 15 MG CAP PO PRN (15:15)
[2017-11-02] MEDS: SODIUM CHLORIDE 0.9% 1,000 ML IV SCH (15:27)
[2017-11-02 15:42] LABS: Urine Bacteria FEW /hpf (None Seen); Urine Blood Negative /uL (Negative); Urine Mucus FEW (None Seen); Urine WBC 1 /hpf (0 - 5)
[2017-11-02] MEDS ORDERED: MORPHINE SULFATE 8mg/ml INJ SDV IV PRN (16:45)
[2017-11-02 17:12] VITALS: BP 86/53
[2017-11-02] MEDS: VANCOMYCIN 1GM/250ML 250 ML IV SCH (18:51)
[2017-11-02] MEDS: HYDROcodone-ACET 5/325MG TAB PO PRN (20:53)
[2017-11-02] MEDS: PIPERACILLIN-TAZOB 3.375GM 100 ML IV SCH (20:53)
[2017-11-03] MEDS: SODIUM CHLORIDE 0.9% 1,000 ML IV SCH ×3 (00:40→21:53)
[2017-11-03] MEDS: MORPHINE SULFATE 8mg/ml INJ SDV IV PRN ×2 (00:53→19:59)
[2017-11-03] MEDS: PIPERACILLIN-TAZOB 3.375GM 100 ML IV SCH ×4 (04:15→21:53)
[2017-11-03 05:30] VITALS: BP 119/70
[2017-11-03 05:55] LABS: Basophils # (auto) 0 uL; Eosinophils # (auto) 0.1 uL; Hemoglobin 9.2 g/dL (12.2-16.2); Lymphocytes # (auto) 0.9 uL
[2017-11-03] MEDS: HYDROcodone-ACET 5/325MG TAB PO PRN (05:55)
[2017-11-03 05:57] LABS: Basophils % (auto) 0.5 % (0.0-2.0); Eosinophils % (auto) 1.8 % (0.0-7.0); Lymphocytes % (auto) 15.1 % (10.0-50.0); Mean Corpuscular Hgb Conc. 32.8 g/dL (32.0-36.0); Mean Corpuscular Volume 73.2 fL (80.0-100.0); Monocytes # (auto) 0.4 uL; Monocytes % (auto) 7.6 % (0.0-12.0); Neutrophils # (auto) 4.4 uL; Nucleated Red Blood Cells % 0.1 %; Platelet Count (auto) 315 10^3/uL (140-450); Red Blood Cells 3.83 10^6/uL (4.0-5.20); White Blood Cell 5.9 10^3/uL (4.4-10.8)
[2017-11-03 06:12] LABS: Cholesterol 97 mg/dL (< 200); HDL Cholesterol 28 mg/dL (40-59); LDL Cholesterol 77 mg/dL (< 100); Triglycerides 69 mg/dL (< 150)
[2017-11-03 09:00] VITALS: BP 125/75
[2017-11-03] MEDS ORDERED: NITROGLYCERIN 0.2MG/HR TOPICAL PATCH TD SCH (10:00)
[2017-11-03] MEDS: ASPirin 81 mg TAB PO SCH (11:30)
[2017-11-03] MEDS: PANTOPRAZOLE 40 MG TAB PO SCH (11:31)
[2017-11-03] MEDS: METHADONE HCL 10 MG TAB PO SCH (11:31)
[2017-11-03] MEDS: ENOXAPARIN SOD 40 MG/0.4 ML SYRINGE SC SCH (11:31)
[2017-11-03 13:00] VITALS: BP 125/79
[2017-11-03] MEDS: VANCOMYCIN 1GM/250ML 250 ML IV SCH (14:11)
[2017-11-03] MEDS ORDERED: HYDROCORTONE 1% TOPICAL CREAM 30 GM TUBE TOP ONE (14:30)
[2017-11-03] MEDS ORDERED: NICOTINE 21MG/24 HR TOPICAL PATCH TD ONE (14:30)
[2017-11-03 17:00] VITALS: BP 112/72
[2017-11-03 21:05] VITALS: BP 132/88
[2017-11-03] MEDS: MULTIPLE VITAMINS W/ MINERALS TAB PO SCH (21:52)
[2017-11-03] MEDS: ASCORBIC ACID 500 MG TAB PO SCH (21:52)
[2017-11-03] MEDS: HYDROCORTONE 1% TOPICAL CREAM 30 GM TUBE TOP SCH (21:55)
[2017-11-04] MEDS: MORPHINE SULFATE 8mg/ml INJ SDV IV PRN (01:27)
[2017-11-04] MEDS: PIPERACILLIN-TAZOB 3.375GM 100 ML IV SCH (03:39)
[2017-11-04 05:13] VITALS: BP 147/73
[2017-11-04 05:16] VITALS: BP 104/60
[2017-11-04 06:00] LABS: Calcium 8.1 mg/dL (8.5-10.1); Magnesium 2.2 mg/dL (1.6-2.6)
[2017-11-04 06:05] LABS: BUN/Creatinine Ratio 15.7
[2017-11-04] MEDS: SODIUM CHLORIDE 0.9% 1,000 ML IV SCH (06:25)
[2017-11-04] MEDS: VANCOMYCIN 1GM/250ML 250 ML IV SCH (06:46)
[2017-11-04 08:19] LABS: Basophils # (auto) 0 uL; Basophils % (auto) 0.3 % (0.0-2.0); Eosinophils # (auto) 0.1 uL; Hemoglobin 9.3 g/dL (12.2-16.2); Lymphocytes # (auto) 0.9 uL; Mean Corpuscular Hgb Conc. 32.5 g/dL (32.0-36.0); Monocytes # (auto) 0.3 uL; Nucleated Red Blood Cells % 0.1 %; Red Cell Distribution Width 16.9 % (11.8-14.3)
[2017-11-04 08:21] LABS: Eosinophils % (auto) 2.3 % (0.0-7.0); Hematocrit 28.5 % (36.0-46.0); Lymphocytes % (auto) 18.5 % (10.0-50.0); Mean Corpuscular Hemoglobin 23.7 pg (28.0-32.0); Monocytes % (auto) 6.8 % (0.0-12.0); Neutrophils # (auto) 3.4 uL; Neutrophils % (auto) 72.1 % (37.0-80.0); Platelet Count (auto) 299 10^3/uL (140-450); White Blood Cell 4.7 10^3/uL (4.4-10.8)
[2017-11-04 09:00] VITALS: BP 106/62
[2017-11-04] MEDS ORDERED: NICOTINE 21MG/24 HR TOPICAL PATCH TD SCH (10:00)
[2017-11-04] MEDS: ENOXAPARIN SOD 40 MG/0.4 ML SYRINGE SC SCH (10:39)
[2017-11-04] MEDS: PANTOPRAZOLE 40 MG TAB PO SCH (10:39)
[2017-11-04] MEDS: METHADONE HCL 10 MG TAB PO SCH (10:39)
[2017-11-04] MEDS: ASPirin 81 mg TAB PO SCH (10:39)
[2017-11-04] MEDS: ASCORBIC ACID 500 MG TAB PO SCH (10:39)
[2017-11-04] MEDS: MULTIPLE VITAMINS W/ MINERALS TAB PO SCH (10:39)
[2017-11-04] MEDS: HYDROCORTONE 1% TOPICAL CREAM 30 GM TUBE TOP SCH (10:40)
[2017-11-04] MEDS ORDERED: SULF400T11 PO (10:51)
[2017-11-04] MEDS ORDERED: SACC250C PO (10:51)
[2017-11-04] MEDS ORDERED: HYD1TP TOP (10:56)
[2017-11-04 12:30] VITALS: BP 115/80
== END 2017-11-04 14:45 | disposition home or self-care (01) | DRG 602 ==
LOC: ER 09:19 → TELE 09:20 → TELE-WESTW 15:58
PROVIDERS: ADMIT Internal Medicine; ATTEND Internal Medicine
DX: L03.115 Cellulitis of right lower limb (principal); E43 Unspecified severe protein-calorie malnutrition; L97.119 Non-pressure chronic ulcer of right thigh with unspecified severity; L03.116 Cellulitis of left lower limb; L02.416 Cutaneous abscess of left lower limb; L02.415 Cutaneous abscess of right lower limb; D63.8 Anemia in other chronic diseases classified elsewhere; E87.6 Hypokalemia; F15.90 Other stimulant use, unspecified, uncomplicated; F11.10 Opioid abuse, uncomplicated; F17.210 Nicotine dependence, cigarettes, uncomplicated; B19.20 Unspecified viral hepatitis C without hepatic coma; B95.62 Methicillin resistant Staphylococcus aureus infection as the cause of diseases classified elsewhere; R07.81 Pleurodynia; R21 Rash and other nonspecific skin eruption; F41.9 Anxiety disorder, unspecified; Z98.51 Tubal ligation status; Z59.0 Homelessness; Z68.23 Body mass index [BMI] 23.0-23.9, adult
CPT/HCPCS: 36415; 71046; 72193; 80048; 80053; 80061; 80307; 81001; 82550; 83605; 83735; 84443; 84484; 84702; 85025; 85610; 85652; 85730; 86141; 87040; 87077; 87081; 87186; 87205; 93005; 96361; 96374; 96375; J1885; J2270; J2543